=== PATIENT | female | born 1990 | race Caucasian/White ===

== ENCOUNTER 2017-11-02 08:29 | Observation (INO) | payer OTHER ==
[2017-11-02] MEDS ORDERED: Sodium Chloride 0.9% 1,000 ML IV ONE (08:47)
[2017-11-02] MEDS ORDERED: Ondansetron 4 MG/2 ML SDV IVPUSH ONE ×2 (08:48→09:47)
[2017-11-02] MEDS ORDERED: Ketorolac 30 MG/ML SDV IVPUSH ONE (08:48)
--- NOTE | 2017-11-02 08:56 | EDM.PDOC ---
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, has more discomfort that in the past no f/c/d Right Abdomen Pain Score (Numeric/FACES): 4 - Related Data Allergies Allergy/AdvReac Type Severity Reaction Status Date / Time Sulfa (Sulfonamide Allergy Nausea and Verified 11/02/17 08:45 Antibiotics) Vomiting Home Meds: Home Meds Sertraline [Zoloft] 25 mg PO DAILY 11/02/17 [History] ED ROS GENERAL - Review of Systems Review Of Systems: See Below Constitutional: Reports: No Symptoms HEENT: Reports: No Symptoms Respiratory: Reports: No Symptoms Cardiovascular: Reports: No Symptoms Endocrine: Reports: No Symptoms GI/Abdominal: Reports: Abdominal Pain, Diarrhea, Nausea, Vomiting : Reports: No Symptoms Musculoskeletal: Reports: No Symptoms Skin: Reports: No Symptoms Neurological: Reports: No Symptoms Psychiatric: Reports: No Symptoms Hematologic/Lymphatic: Reports: No Symptoms Immunologic: Reports: No Symptoms ED EXAM, GI/ABD - Physical Exam Exam: See Below Exam Limited By: No Limitations General Appearance: Alert, WD/WN, Active Emesis, Other (had dry heaves on arrival, then settled down, PE benign, NAD, non ill) Eyes: Bilateral: Normal Appearance Ears: Normal External Exam, Hearing Grossly Normal Nose: Normal Inspection, Normal Mucosa, No Blood Throat/Mouth: Normal Inspection, Normal Lips, Normal Teeth, Normal Voice, No Airway Compromise Head: Atraumatic, Normocephalic Neck: Normal Inspection, Supple, Non-Tender, Full Range of Motion Respiratory/Chest: No Respiratory Distress, Lungs Clear, Normal Breath Sounds, No Accessory Muscle Use, Chest Non-Tender Cardiovascular: Regular Rate, Rhythm, No Edema, No Gallop, No Murmur, No Rub GI/Abdominal Exam: Normal Bowel Sounds, Soft, Non-Tender, No Distention, No Mass , Other (very soft, no tender at RUQ, no CVAT b/l, NT at [place]) Back Exam: Normal Inspection, Full Range of Motion. No: CVA Tenderness (R), CVA Tenderness (L) Extremities: Normal Inspection, Normal Range of Motion, Non-Tender, No Pedal Edema Neurological: Alert, Oriented, CN II-XII Intact, Normal Cognition, No Motor/ Sensory Deficits Psychiatric: Normal Affect, Normal Mood Skin Exam: Warm, Dry, Intact, Normal Color, No Rash Lymphatic: No Adenopathy Course - Vital Signs Last Recorded V/S: Last Vital Signs Temp 36.7 C 11/02/17 12:10 Pulse 127 H 11/02/17 08:34 Resp 18 11/02/17 08:34 BP 113/62 11/02/17 08:34 Pulse Ox 99 11/02/17 08:34 - Orders/Labs/Meds Orders: Active Orders 24 hr Category Date Time Status Abdomen Pelvis w Cont [CT] Stat Exams 11/02/17 11:13 Ordered CULTURE URINE [RM] Stat Lab 11/02/17 11:08 Ordered HCG QUALITATIVE,URINE [URCHEM] Stat Lab 11/02/17 08:47 Ordered UA W/MICROSCOPIC [URIN] Stat Lab 11/02/17 08:47 Ordered URINALYSIS W/MICROSCOPIC [UA W/MICROSCOPIC] [URIN] Stat Lab 11/02/17 09:54 Ordered Labs: Laboratory Tests 11/02/17 11/02/17 11/02/17 Range/Units 09:00 09:00 09:00 WBC 14.2 H (4.5-12.0) X10-3/uL RBC 5.19 (3.23-5.20) x10(6)uL Hgb 14.4 (11.5-15.5) g/dL Hct 43.7 (30.0-51.3) % MCV 84.2 (80-96) fL MCH 27.8 (27.7-33.6) pg MCHC 33.0 (32.2-35.4) g/dL RDW 11.9 (11.5-15.5) % Plt Count 264 (125-369) X10(3)uL MPV 9.4 (7.4-10.4) fL Add Manual Diff Yes Neutrophils % (Manual) 91 H (46-82) % Lymphocytes % (Manual) 5 L (13-37) % Monocytes % (Manual) 4 (4-12) % Sodium 139 (135-145) mmol/L Potassium 3.7 (3.5-5.3) mmol/L Chloride 104 (100-110) mmol/L Carbon Dioxide 26 (21-32) mmol/L BUN 14 (7-18) mg/dL Creatinine 0.8 (0.55-1.02) mg/dL Est Cr Clr Drug Dosing TNP Estimated GFR (MDRD) > 60 (>60) BUN/Creatinine Ratio 17.5 (9-20) Glucose 125 H (80-116) mg/dL Calcium 8.4 L (8.6-10.2) mg/dL Total Bilirubin 0.5 (0.1-1.3) mg/dL AST 15 (5-25) IU/L ALT 25 (12-36) U/L Alkaline Phosphatase 49 L (56-112) IU/L C-Reactive Protein 2.0 H (0.5-0.9) mg/dL Total Protein 7.1 (6.0-8.0) g/dL Albumin 3.3 L (3.5-5.2) g/dL Globulin 3.8 g/dL Albumin/Globulin Ratio 0.9 Amylase 33 (25-115) U/L Urine Color (YELLOW) Urine Appearance (CLEAR) Urine pH (5.0-6.5) Ur Specific [place] (1.010-1.025) Urine Protein (NEGATIVE) mg/dL Urine Glucose (UA) (NEGATIVE) mg/dL Urine Ketones (NEGATIVE) mg/dL Urine Occult Blood (NEGATIVE) Urine Nitrite (NEGATIVE) Urine Bilirubin (NEGATIVE) Urine Urobilinogen (NEGATIVE) mg/dL Ur Leukocyte Esterase (NEGATIVE) Urine RBC (0) Urine WBC (0) Ur Squamous Epith Cells (NS,R,O) Urine Bacteria (NS) Urine HCG, Qual (NEGATIVE) 11/02/17 11/02/17 11/02/17 Range/Units 09:24 09:24 10:04 WBC (4.5-12.0) X10-3/uL RBC (3.23-5.20) x10(6)uL Hgb (11.5-15.5) g/dL Hct (30.0-51.3) % MCV (80-96) fL MCH (27.7-33.6) pg MCHC (32.2-35.4) g/dL RDW (11.5-15.5) % Plt Count (125-369) X10(3)uL MPV (7.4-10.4) fL Add Manual Diff Neutrophils % (Manual) (46-82) % Lymphocytes % (Manual) (13-37) % Monocytes % (Manual) (4-12) % Sodium (135-145) mmol/L Potassium (3.5-5.3) mmol/L Chloride (100-110) mmol/L Carbon Dioxide (21-32) mmol/L BUN (7-18) mg/dL Creatinine (0.55-1.02) mg/dL Est Cr Clr Drug Dosing Estimated GFR (MDRD) (>60) BUN/Creatinine Ratio (9-20) Glucose (80-116) mg/dL Calcium (8.6-10.2) mg/dL Total Bilirubin (0.1-1.3) mg/dL AST (5-25) IU/L ALT (12-36) U/L Alkaline Phosphatase (56-112) IU/L C-Reactive Protein (0.5-0.9) mg/dL Total Protein (6.0-8.0) g/dL Albumin (3.5-5.2) g/dL Globulin g/dL Albumin/Globulin Ratio Amylase (25-115) U/L Urine Color Yellow Yellow (YELLOW) Urine Appearance Slightly cloudy Slightly cloudy (CLEAR) Urine pH 5.0 7.0 H (5.0-6.5) Ur Specific [place] 1.025 1.010 (1.010-1.025) Urine Protein Negative Negative (NEGATIVE) mg/dL Urine Glucose (UA) Normal Normal (NEGATIVE) mg/dL Urine Ketones Negative Negative (NEGATIVE) mg/dL Urine Occult Blood Moderate H Moderate H (NEGATIVE) Urine Nitrite Negative Negative (NEGATIVE) Urine Bilirubin Small H Negative (NEGATIVE) Urine Urobilinogen Normal Normal (NEGATIVE) mg/dL Ur Leukocyte Esterase Negative Negative (NEGATIVE) Urine RBC 5-10 0-5 (0) Urine WBC 0-5 0-5 (0) Ur Squamous Epith Cells Moderate H Few H (NS,R,O) Urine Bacteria Many H Moderate H (NS) Urine HCG, Qual Negative (NEGATIVE) Meds: Medications Discontinued Medications Generic Name Dose Route Start Last Admin Trade Name Talia PRN Reason Stop Dose Admin Diphenhydramine HCl 25 mg 11/02/17 10:46 11/02/17 10:50 Benadryl IVPUSH 11/02/17 10:47 25 mg ONETIME ONE Administration Sodium Chloride 1,000 mls @ 999 mls/hr 11/02/17 08:47 11/02/17 08:58 Normal Saline IV 11/02/17 09:47 999 mls/hr .BOLUS ONE Administration Sodium Chloride 500 mls @ 999 mls/hr 11/02/17 09:51 11/02/17 10:13 Normal Saline IV 11/02/17 10:21 999 mls/hr .BOLUS ONE Administration Ceftriaxone Sodium 1,000 mg/ 50 mls @ 100 mls/hr 11/02/17 11:22 11/02/17 12: 06 Sodium Chloride IV 11/02/17 11:51 100 mls/hr ONETIME ONE Administration Sodium Chloride Confirm 11/02/17 11:31 Normal Saline Administered 11/02/17 11:32 Dose 50 mls @ as directed .ROUTE .STK-MED ONE Sodium Chloride Confirm 11/02/17 11:32 Normal Saline Administered 11/02/17 11:33 Dose 50 mls @ as directed .ROUTE .STK-MED ONE Sodium Chloride Confirm 11/02/17 11:34 Normal Saline Administered 11/02/17 11:35 Dose 50 mls @ as directed .ROUTE .STK-MED ONE Iopamidol 100 ml 11/02/17 11:25 11/02/17 11:31 Isovue-370 (76%) IV 11/02/17 11:26 100 ml . DIRECTED ONE Administration Ketorolac Tromethamine 30 mg 11/02/17 08:48 11/02/17 08:59 Toradol IVPUSH 11/02/17 08:49 30 mg ONETIME ONE Administration Metoclopramide HCl 10 mg 11/02/17 10:45 11/02/17 10:51 Reglan IVPUSH 11/02/17 10:46 10 mg ONETIME ONE Administration Ondansetron HCl 4 mg 11/02/17 08:48 11/02/17 08:59 Zofran IVPUSH 11/02/17 08:49 4 mg ONETIME ONE Administration Ondansetron HCl 4 mg 11/02/17 09:47 11/02/17 09:54 Zofran IVPUSH 11/02/17 09:48 4 mg ONETIME ONE Administration Promethazine HCl 50 mg 11/02/17 12:37 Phenergan IM 11/02/17 12:38 ONETIME ONE - Re-Assessments/Exams Free Text/Narrative Re-Assessment/Exam: 11/02/17 12:02 repeat u/a with less contaminants, still with moderate bacteria suggesting pyelo altho scant WBC, CRP 2.0 suggests infectious origin pt has h/o kidney stones since 2010, however none seen on CT and scant RBC in urine pt did require 3 doses of anti-emetics (Zofran x 2, Reglan x 1), Benadryl 25 mg IV only made her a little sleepy pt did develop mild tenderness along the R flank, none above inguinal ligament CT of abd/pelvis obtained, no appendicitis, did have multiple small mesenteric lymph nodes, c/w mesenteric lymphadenitis as well as pyelo Free Text/Narrative Re-Assessment/Exam: 11/02/17 12:41 still with N/V, will admit for continued hydration, anti-emetics and antbxs, pt and her mother agree. D/w Dr Rowell who accepted pt in admission. Departure - Departure Time of Disposition: 12:42 Disposition: Refer to Observation Condition: Good Clinical Impression: Pyelonephritis - Discharge Information Referrals: Jayla Julio PA [Primary Care Provider] - - My Orders Last 24 Hours: My Active Orders 11/02/17 08:47 HCG QUALITATIVE,URINE [URCHEM] Stat UA W/MICROSCOPIC [URIN] Stat 11/02/17 09:54 URINALYSIS W/MICROSCOPIC [UA W/MICROSCOPIC] [URIN] Stat 11/02/17 11:08 CULTURE URINE [RM] Stat 11/02/17 11:13 Abdomen Pelvis w Cont [CT] Stat - Assessment/Plan Last 24 Hours: My Active Orders 11/02/17 08:47 HCG QUALITATIVE,URINE [URCHEM] Stat UA W/MICROSCOPIC [URIN] Stat 11/02/17 09:54 URINALYSIS W/MICROSCOPIC [UA W/MICROSCOPIC] [URIN] Stat 11/02/17 11:08 CULTURE URINE [RM] Stat 11/02/17 11:13 Abdomen Pelvis w Cont [CT] Stat
[2017-11-02] MEDS ORDERED: Sodium Chloride 0.9% 500 ML IV ONE (09:51)
[2017-11-02] MEDS ORDERED: Metoclopramide 10 MG/2 ML SDV IVPUSH ONE ×2 (10:45→19:39)
[2017-11-02] MEDS ORDERED: diphenhydrAMINE 50 MG/ML SDV IVPUSH ONE (10:46)
[2017-11-02] MEDS ORDERED: cefTRIAXone 1,000 MG in Sodium Chloride 0.9% 50 ML IV ONE (11:22)
[2017-11-02] MEDS ORDERED: Iopamidol 755 Mg/ML 100 ML Bottle IV ONE (11:25)
[2017-11-02] MEDS ORDERED: Sodium Chloride 0.9% 0 ML ONE ×3 (11:31→11:34)
[2017-11-02] MEDS ORDERED: Promethazine 25 MG/ML SDV IM ONE (12:37)
--- NOTE | 2017-11-02 13:37 | PCM.HP ---
H&P History of Present Illness - General Date of Service: 11/02/17 Admit Problem/Dx: Admission Diagnosis/Problem Admission Diagnosis/Problem Intractable vomiting Source of Information: Patient, Family, Old Records, Provider History Limitations: Reports: No Limitations - History of Present Illness Initial Comments - Free Text/Narative: Patient is a 27-year-old female who was in her usual state of good health until about 3 AM this morning when she awakened with intractable nausea/vomiting/ diarrhea and mild right upper quadrant pain. The patient last evening was already riding and at about 5:30 PM had a separate primary, potatoes, corn. This was served indoors. The fluid appeared to be kept at appropriate temperatures with appropriate catering warmers. She had 3 or 4 beers and then went home and went to bed. She woke up at 3 AM with symptoms as noted above. She had no fevers but did have some chills and sweats. No other sick contacts except for at the wedding the flower girl vomited. They thought this was just due to nerves and eating too much candy. She presented to the emergency department and was treated with IV fluids, Zofran, Reglan, and Phenergan. Initial evaluation showed a white count of 14.2 with a left shift. CRP was 2.0. Other chemistries were unremarkable. Creatinine was 0.8 with a BUN of 14. UA did show some bacteria and 0-5 red blood cells. The patient had a previous history of bladder infection 09/05/2017 which was treated with ciprofloxacin 5 days. Past medical history: Gallbladder removal and normal past which felt nothing like this, bladder infection a month ago which did not feel like this. She had frequency with that and was treated on 09/05/2017 with 5 days of Cipro 250 mg. She also was treated for yeast infection with a one-time dose of Diflucan after the antibiotic therapy and had clindamycin for I believe bacterial vaginosis. Recent history of diagnosis of genital warts about a month ago as well. At that time she had treatment and also negative GC and chlamydia testing. She's had no sexual partner since that time. Social history: This alone here in town. She is single no children and works as a emt/dispatcher. She is a nonsmoker. Drinks alcohol about once a week usually 3-4 beers at a sitting. Had 3 beers last evening. Advised to cut back to no more than 1-2 beers in a sitting. Family history: The patient's mother who is here with her today has breast cancer with metastatic disease to the bone. She was diagnosed 12 years ago and is currently 52. The patient's father has hypothyroidism. The patient has one brother in good health and no sisters. Right Abdomen Pain Score (Numeric/FACES): 4 - Related Data Allergies/Adverse Reactions: Allergies Allergy/AdvReac Type Severity Reaction Status Date / Time Sulfa (Sulfonamide Allergy Nausea and Verified 11/02/17 08:45 Antibiotics) Vomiting Home Medications: Home Meds Sertraline [Zoloft] 25 mg PO DAILY 11/02/17 [History] Past Medical History Gastrointestinal History: Reports: Other (See Below) Other Gastrointestinal History: Pt had gallbladder removed 11 years ago. Psychiatric History: Reports: Anxiety, Depression Social & Family History - Tobacco Use Smoking Status *Q: Never Smoker Second Hand Smoke Exposure: No - Caffeine Use Caffeine Use: Reports: Coffee - Recreational Drug Use Recreational Drug Use: No H&P Review of Systems - Review of Systems: Review Of Systems: ROS reveals no pertinent complaints other than HPI. Exam - Exam Exam: See Below - Vital Signs Vital Signs: Last Vital Signs Temp 36.5 C 11/02/17 13:10 Pulse 110 H 11/02/17 13:10 Resp 14 11/02/17 13:10 BP 104/56 L 11/02/17 13:10 Pulse Ox 100 11/02/17 13:10 Weight: 91.626 kg - Exam General: Alert, Oriented, Cooperative, Mild Distress HEENT: PERRLA, Conjunctiva Clear, Mucosa Moist & [place] Neck: Supple Lungs: Clear to Auscultation, Normal Respiratory Effort Cardiovascular: Regular Rate, Regular Rhythm, Normal S1, Normal S2 GI/Abdominal Exam: Normal Bowel Sounds, Soft, Non-Tender, No Distention Back Exam: Normal Inspection Extremities: Normal Inspection, Normal Range of Motion, Non-Tender, No Pedal Edema Neuro Extensive - Mental Status: Alert, Oriented x3 - Patient Data Lab Results Last 24 hrs: Laboratory Results - last 24 hr 11/02/17 11/02/17 11/02/17 Range/Units 09:00 09:00 09:00 WBC 14.2 H (4.5-12.0) X10-3/uL RBC 5.19 (3.23-5.20) x10(6)uL Hgb 14.4 (11.5-15.5) g/dL Hct 43.7 (30.0-51.3) % MCV 84.2 (80-96) fL MCH 27.8 (27.7-33.6) pg MCHC 33.0 (32.2-35.4) g/dL RDW 11.9 (11.5-15.5) % Plt Count 264 (125-369) X10(3)uL MPV 9.4 (7.4-10.4) fL Add Manual Diff Yes Neutrophils % (Manual) 91 H (46-82) % Lymphocytes % (Manual) 5 L (13-37) % Monocytes % (Manual) 4 (4-12) % Sodium 139 (135-145) mmol/L Potassium 3.7 (3.5-5.3) mmol/L Chloride 104 (100-110) mmol/L Carbon Dioxide 26 (21-32) mmol/L BUN 14 (7-18) mg/dL Creatinine 0.8 (0.55-1.02) mg/dL Est Cr Clr Drug Dosing TNP Estimated GFR (MDRD) > 60 (>60) BUN/Creatinine Ratio 17.5 (9-20) Glucose 125 H (80-116) mg/dL Calcium 8.4 L (8.6-10.2) mg/dL Total Bilirubin 0.5 (0.1-1.3) mg/dL AST 15 (5-25) IU/L ALT 25 (12-36) U/L Alkaline Phosphatase 49 L (56-112) IU/L C-Reactive Protein 2.0 H (0.5-0.9) mg/dL Total Protein 7.1 (6.0-8.0) g/dL Albumin 3.3 L (3.5-5.2) g/dL Globulin 3.8 g/dL Albumin/Globulin Ratio 0.9 Amylase 33 (25-115) U/L Urine Color (YELLOW) Urine Appearance (CLEAR) Urine pH (5.0-6.5) Ur Specific [place] (1.010-1.025) Urine Protein (NEGATIVE) mg/dL Urine Glucose (UA) (NEGATIVE) mg/dL Urine Ketones (NEGATIVE) mg/dL Urine Occult Blood (NEGATIVE) Urine Nitrite (NEGATIVE) Urine Bilirubin (NEGATIVE) Urine Urobilinogen (NEGATIVE) mg/dL Ur Leukocyte Esterase (NEGATIVE) Urine RBC (0) Urine WBC (0) Ur Squamous Epith Cells (NS,R,O) Urine Bacteria (NS) Urine HCG, Qual (NEGATIVE) 11/02/17 11/02/17 11/02/17 Range/Units 09:24 09:24 10:04 WBC (4.5-12.0) X10-3/uL RBC (3.23-5.20) x10(6)uL Hgb (11.5-15.5) g/dL Hct (30.0-51.3) % MCV (80-96) fL MCH (27.7-33.6) pg MCHC (32.2-35.4) g/dL RDW (11.5-15.5) % Plt Count (125-369) X10(3)uL MPV (7.4-10.4) fL Add Manual Diff Neutrophils % (Manual) (46-82) % Lymphocytes % (Manual) (13-37) % Monocytes % (Manual) (4-12) % Sodium (135-145) mmol/L Potassium (3.5-5.3) mmol/L Chloride (100-110) mmol/L Carbon Dioxide (21-32) mmol/L BUN (7-18) mg/dL Creatinine (0.55-1.02) mg/dL Est Cr Clr Drug Dosing Estimated GFR (MDRD) (>60) BUN/Creatinine Ratio (9-20) Glucose (80-116) mg/dL Calcium (8.6-10.2) mg/dL Total Bilirubin (0.1-1.3) mg/dL AST (5-25) IU/L ALT (12-36) U/L Alkaline Phosphatase (56-112) IU/L C-Reactive Protein (0.5-0.9) mg/dL Total Protein (6.0-8.0) g/dL Albumin (3.5-5.2) g/dL Globulin g/dL Albumin/Globulin Ratio Amylase (25-115) U/L Urine Color Yellow Yellow (YELLOW) Urine Appearance Slightly cloudy Slightly cloudy (CLEAR) Urine pH 5.0 7.0 H (5.0-6.5) Ur Specific [place] 1.025 1.010 (1.010-1.025) Urine Protein Negative Negative (NEGATIVE) mg/dL Urine Glucose (UA) Normal Normal (NEGATIVE) mg/dL Urine Ketones Negative Negative (NEGATIVE) mg/dL Urine Occult Blood Moderate H Moderate H (NEGATIVE) Urine Nitrite Negative Negative (NEGATIVE) Urine Bilirubin Small H Negative (NEGATIVE) Urine Urobilinogen Normal Normal (NEGATIVE) mg/dL Ur Leukocyte Esterase Negative Negative (NEGATIVE) Urine RBC 5-10 0-5 (0) Urine WBC 0-5 0-5 (0) Ur Squamous Epith Cells Moderate H Few H (NS,R,O) Urine Bacteria Many H Moderate H (NS) Urine HCG, Qual Negative (NEGATIVE) Result Diagrams: 11/02/17 09:00 11/02/17 09:00 Imaging Impressions Last 24 hrs: CT abdomen and pelvis was negative for any pathology. The patient did have an ovarian cyst which should be followed up as an outpatient. - Problem List (1) Intractable vomiting with nausea SNOMED Code(s): 492937613 ICD Code: R11.2 - NAUSEA WITH VOMITING, UNSPECIFIED Status: Acute Current Visit: Yes Problem Details: Unclear etiology. Could be viral gastroenteritis given the follicle vomiting at the wedding yesterday. Could be food related illness. Antiemetics, IV fluids, continue monitoring. Given recent bladder infection the patient had received a dose of Rocephin in the emergency department. This is good for 24 hours so pending urine culture will not give any further antibiotic therapy at this time. (2) Pyelonephritis SNOMED Code(s): 49308362 ICD Code: N12 - TUBULO-INTERSTITIAL NEPHRITIS, NOT SPCF ACUTE OR CHRONIC Status: Acute Current Visit: Yes Problem Details: Given lack of symptomatology, no fever, no frequency or urgency, I'm going to hold off on antibiotic therapy. Looking at the patient's urinalysis from the clinic, although showed many bacteria and white blood cells, also showed many squamous epithelial cells in addition to leukocyte esterase. Nitrates were negative. Culture showed mixed microflora with 1000 colonies of Streptococcus B agalactiae. (3) Ovarian cyst SNOMED Code(s): 12952869 ICD Code: N83.209 - UNSPECIFIED OVARIAN CYST, UNSPECIFIED SIDE Status: Acute Current Visit: Yes Problem Details: We'll need followed up as an outpatient. Patient and mother informed of this finding and are aware. Patient has previous history of ovarian cysts. (4) DVT prophylaxis SNOMED Code(s): 514854258, 591638627 ICD Code: MNL0157 - Status: Acute Current Visit: Yes Problem Details: SCDs, early ambulation. Problem List Initiated/Reviewed/Updated: Yes Orders Last 24hrs: Active Orders 24 hr Category Date Time Status Patient Status [ADT] Routine ADT 11/02/17 12:55 Active Height and Weight [RC] DAILY Care 11/02/17 12:55 Active Intake and Output [RC] QSHIFT Care 11/02/17 12:55 Active Oxygen Therapy [RC] PRN Care 11/02/17 12:55 Active Up ad Alexa [RC] ASDIRECTED Care 11/02/17 12:55 Active VTE/DVT Education [RC] Per Unit Routine Care 11/02/17 12:55 Active Vital Signs [RC] Q4H Care 11/02/17 12:55 Active Clear Liquid Diet [DIET] Diet 11/02/17 Breakfast Active Abdomen Pelvis w Cont [CT] Stat Exams 11/02/17 11:13 Taken BASIC METABOLIC PANEL,BMP [CHEM] AM Lab 11/03/17 05:11 Ordered CBC WITH AUTO DIFF [HEME] AM Lab 11/03/17 05:11 Ordered CULTURE URINE [RM] Stat Lab 11/02/17 10:04 Received HCG QUALITATIVE,URINE [URCHEM] Stat Lab 11/02/17 09:24 Ordered UA W/MICROSCOPIC [URIN] Stat Lab 11/02/17 09:24 Ordered URINALYSIS W/MICROSCOPIC [UA W/MICROSCOPIC] [URIN] Stat Lab 11/02/17 10:04 Ordered Ondansetron [Zofran ODT] Med 11/02/17 12:55 Active 4 mg PO Q4H PRN Sertraline [Zoloft] Med 11/03/17 09:00 Active 25 mg PO DAILY Sequential Compression Device [OM.PC] Per Unit Routine Oth 11/02/17 12:56 Ordered Resuscitation Status Routine Resus Stat 11/02/17 12:55 Ordered Medication Orders Ondansetron HCl (Zofran Odt) 4 mg PO Q4H PRN PRN Reason: nausea, able to take PO Sertraline HCl (Zoloft) 25 mg PO DAILY BRYANNA Assessment/Plan Comment:: CODE STATUS discussed with the patient and her mother. The patient is a full code.
[2017-11-02] MEDS ORDERED: Sodium Chloride 0.9% 10 ML Syringe FLUSH PRN (15:33)
[2017-11-02] MEDS: Acetaminophen 325 MG Tab PO PRN (17:20)
[2017-11-02] MEDS: Sodium Chloride 0.9% 1,000 ML IV SCH (17:21)
[2017-11-02] MEDS: Ondansetron 4 MG Tab.DIS PO PRN ×2 (18:03→23:20)
[2017-11-03] MEDS: Acetaminophen 325 MG Tab PO PRN ×2 (02:34→09:07)
[2017-11-03] MEDS: Sodium Chloride 0.9% 1,000 ML IV SCH ×2 (03:20→14:43)
[2017-11-03] MEDS ORDERED: Potassium Chloride 10 MEQ in Premix Bag 4 BAG IV ONE (07:49)
[2017-11-03] MEDS: Potassium Chloride 100 ML IV SCH ×4 (08:59→13:02)
[2017-11-03] MEDS: Sertraline 25 MG Tab PO SCH (08:59)
[2017-11-03] MEDS ORDERED: Potassium Chloride 100 ML IV SCH (09:00)
--- NOTE | 2017-11-03 10:06 | PCM.PN ---
- General Info Date of Service: 11/03/17 Subjective Update: 27-year-old female currently on hospital day #2 for nausea/vomiting/diarrhea. No further vomiting this morning but still feels nauseated. Tolerating sips of clear liquids. Has had 3 loose watery stools this morning. No chest pain or shortness of breath. No abdominal pain. - Patient Data Vitals - Most Recent: Last Vital Signs Temp 36.9 C 11/03/17 07:15 Pulse 102 H 11/03/17 07:15 Resp 18 11/03/17 07:15 BP 113/72 11/03/17 07:15 Pulse Ox 97 11/03/17 07:15 Weight - Most Recent: 92.618 kg I&O - Last 24 Hours: Intake & Output 11/02/17 11/03/17 11/03/17 22:59 06:59 14:59 Intake Total 977 1007 100 Output Total 325 75 300 Balance 652 932 -200 Lab Results Last 24 Hours: Laboratory Results - last 24 hr 11/02/17 11/02/17 11/03/17 Range/Units 09:00 10:04 06:15 WBC 6.2 (4.5-12.0) X10-3/uL RBC 4.22 (3.23-5.20) x10(6)uL Hgb 11.8 (11.5-15.5) g/dL Hct 35.1 (30.0-51.3) % MCV 83.2 (80-96) fL MCH 28.0 (27.7-33.6) pg MCHC 33.6 (32.2-35.4) g/dL RDW 11.6 (11.5-15.5) % Plt Count 178 (125-369) X10(3)uL MPV 9.3 (7.4-10.4) fL Neut % (Auto) 80.1 (46-82) % Lymph % (Auto) 13.2 (13-37) % [place] % (Auto) 6.1 (4-12) % Eos % (Auto) 0 L (1.0-5.0) % Baso % (Auto) 0 (0-2) % Neut # (Auto) 5.0 (1.6-8.3) # Lymph # (Auto) 0.8 (0.6-5.0) # Kemper # (Auto) 0.4 (0.0-1.3) # Eos # (Auto) 0.0 (0.0-0.8) # Baso # (Auto) 0.0 (0.0-0.2) # Sodium (135-145) mmol/L Potassium (3.5-5.3) mmol/L Chloride (100-110) mmol/L Carbon Dioxide (21-32) mmol/L BUN (7-18) mg/dL Creatinine (0.55-1.02) mg/dL Est Cr Clr Drug Dosing mL/min Estimated GFR (MDRD) (>60) BUN/Creatinine Ratio (9-20) Glucose (80-116) mg/dL Calcium (8.6-10.2) mg/dL C-Reactive Protein 2.0 H (0.5-0.9) mg/dL Urine Color Yellow (YELLOW) Urine Appearance Slightly cloudy (CLEAR) Urine pH 7.0 H (5.0-6.5) Ur Specific [place] 1.010 (1.010-1.025) Urine Protein Negative (NEGATIVE) mg/dL Urine Glucose (UA) Normal (NEGATIVE) mg/dL Urine Ketones Negative (NEGATIVE) mg/dL Urine Occult Blood Moderate H (NEGATIVE) Urine Nitrite Negative (NEGATIVE) Urine Bilirubin Negative (NEGATIVE) Urine Urobilinogen Normal (NEGATIVE) mg/dL Ur Leukocyte Esterase Negative (NEGATIVE) Urine RBC 0-5 (0) Urine WBC 0-5 (0) Ur Squamous Epith Cells Few H (NS,R,O) Urine Bacteria Moderate H (NS) 11/03/17 Range/Units 06:15 WBC (4.5-12.0) X10-3/uL RBC (3.23-5.20) x10(6)uL Hgb (11.5-15.5) g/dL Hct (30.0-51.3) % MCV (80-96) fL MCH (27.7-33.6) pg MCHC (32.2-35.4) g/dL RDW (11.5-15.5) % Plt Count (125-369) X10(3)uL MPV (7.4-10.4) fL Neut % (Auto) (46-82) % Lymph % (Auto) (13-37) % [place] % (Auto) (4-12) % Eos % (Auto) (1.0-5.0) % Baso % (Auto) (0-2) % Neut # (Auto) (1.6-8.3) # Lymph # (Auto) (0.6-5.0) # Kem[place] # (Auto) (0.0-1.3) # Eos # (Auto) (0.0-0.8) # Baso # (Auto) (0.0-0.2) # Sodium 138 (135-145) mmol/L Potassium 2.7 L* D (3.5-5.3) mmol/L Chloride 106 (100-110) mmol/L Carbon Dioxide 24 (21-32) mmol/L BUN 10 (7-18) mg/dL Creatinine 0.7 (0.55-1.02) mg/dL Est Cr Clr Drug Dosing 96.32 mL/min Estimated GFR (MDRD) > 60 (>60) BUN/Creatinine Ratio 14.3 (9-20) Glucose 90 (80-116) mg/dL Calcium 7.3 L (8.6-10.2) mg/dL C-Reactive Protein (0.5-0.9) mg/dL Urine Color (YELLOW) Urine Appearance (CLEAR) Urine pH (5.0-6.5) Ur Specific [place] (1.010-1.025) Urine Protein (NEGATIVE) mg/dL Urine Glucose (UA) (NEGATIVE) mg/dL Urine Ketones (NEGATIVE) mg/dL Urine Occult Blood (NEGATIVE) Urine Nitrite (NEGATIVE) Urine Bilirubin (NEGATIVE) Urine Urobilinogen (NEGATIVE) mg/dL Ur Leukocyte Esterase (NEGATIVE) Urine RBC (0) Urine WBC (0) Ur Squamous Epith Cells (NS,R,O) Urine Bacteria (NS) Raulito Results Last 24 Hours: Microbiology 11/02/17 10:04 Urine Culture - Preliminary Urine, Clean Catch MIXED POSITIVE DAVID DAY 1 Med Orders - Current: Current Medications Acetaminophen (Tylenol) 650 mg PO Q4H PRN PRN Reason: Pain Last Admin: 11/03/17 09:07 Dose: 650 mg Sodium Chloride (Normal Saline) 1,000 mls @ 100 mls/hr IV ASDIRECTED BRYANNA Last Admin: 11/03/17 03:20 Dose: 100 mls/hr Potassium Chloride (Kcl 10 Meq In Water 100 Ml) 100 mls @ 100 mls/hr IV Q1H BRYANNA Stop: 11/03/17 12:59 Last Admin: 11/03/17 08:59 Dose: 100 mls/hr Ondansetron HCl (Zofran Odt) 4 mg PO Q4H PRN PRN Reason: nausea, able to take PO Last Admin: 11/02/17 23:20 Dose: 4 mg Sertraline HCl (Zoloft) 25 mg PO DAILY BRYANNA Last Admin: 11/03/17 08:59 Dose: 25 mg Sodium Chloride (Saline Flush) 10 ml FLUSH ASDIRECTED PRN PRN Reason: as need for flush Discontinued Medications Diphenhydramine HCl (Benadryl) 25 mg IVPUSH ONETIME ONE Stop: 11/02/17 10:47 Last Admin: 11/02/17 10:50 Dose: 25 mg Sodium Chloride (Normal Saline) 1,000 mls @ 999 mls/hr IV .BOLUS ONE Stop: 11/02/17 09:47 Last Admin: 11/02/17 08:58 Dose: 999 mls/hr Sodium Chloride (Normal Saline) 500 mls @ 999 mls/hr IV .BOLUS ONE Stop: 11/02/17 10:21 Last Admin: 11/02/17 10:13 Dose: 999 mls/hr Ceftriaxone Sodium 1,000 mg/ (Sodium Chloride) 50 mls @ 100 mls/hr IV ONETIME ONE Stop: 11/02/17 11:51 Last Admin: 11/02/17 12:06 Dose: 100 mls/hr Sodium Chloride (Normal Saline) Confirm Administered Dose 50 mls @ as directed .ROUTE .STK-MED ONE Stop: 11/02/17 11:32 Last Admin: 11/02/17 14:49 Dose: Not Given Sodium Chloride (Normal Saline) Confirm Administered Dose 50 mls @ as directed .ROUTE .STK-MED ONE Stop: 11/02/17 11:33 Last Admin: 11/02/17 12:45 Dose: Not Given Sodium Chloride (Normal Saline) Confirm Administered Dose 50 mls @ as directed .ROUTE .STK-MED ONE Stop: 11/02/17 11:35 Last Admin: 11/02/17 12:45 Dose: Not Given Iopamidol (Isovue-370 (76%)) 100 ml IV . DIRECTED ONE Stop: 11/02/17 11:26 Last Admin: 11/02/17 11:31 Dose: 100 ml Ketorolac Tromethamine (Toradol) 30 mg IVPUSH ONETIME ONE Stop: 11/02/17 08:49 Last Admin: 11/02/17 08:59 Dose: 30 mg Metoclopramide HCl (Reglan) 10 mg IVPUSH ONETIME ONE Stop: 11/02/17 10:46 Last Admin: 11/02/17 10:51 Dose: 10 mg Metoclopramide HCl (Reglan) 10 mg IVPUSH ONETIME ONE Stop: 11/02/17 19:40 Last Admin: 11/02/17 19:55 Dose: 10 mg Ondansetron HCl (Zofran) 4 mg IVPUSH ONETIME ONE Stop: 11/02/17 08:49 Last Admin: 11/02/17 08:59 Dose: 4 mg Ondansetron HCl (Zofran) 4 mg IVPUSH ONETIME ONE Stop: 11/02/17 09:48 Last Admin: 11/02/17 09:54 Dose: 4 mg Promethazine HCl (Phenergan) 50 mg IM ONETIME ONE Stop: 11/02/17 12:38 Last Admin: 11/02/17 14:20 Dose: 50 mg - Exam General: Alert, Oriented, Cooperative, No Acute Distress HEENT: Pupils Equal, Pupils Reactive Neck: Supple Lungs: Clear to Auscultation, Normal Respiratory Effort Cardiovascular: Regular Rate, Regular Rhythm, No Murmurs GI/Abdominal Exam: Normal Bowel Sounds, Soft, Non-Tender, No Distention Extremities: Normal Inspection, Normal Range of Motion, No Pedal Edema Psy/Mental Status: Alert, Normal Affect, Normal Mood - Problem List & Annotations (1) Intractable vomiting with nausea SNOMED Code(s): 969878501 Code(s): R11.2 - NAUSEA WITH VOMITING, UNSPECIFIED Status: Acute Current Visit: Yes Annotation/Comment:: Improving. Continue IV antiemetics. Continue IV fluids until patient is taking by mouth intake well. We'll check stool cultures for infection but at this point I suspect this is likely viral. (2) Pyelonephritis SNOMED Code(s): 44710982 Code(s): N12 - TUBULO-INTERSTITIAL NEPHRITIS, NOT SPCF ACUTE OR CHRONIC Status: Acute Current Visit: Yes Annotation/Comment:: No symptoms and urine culture is currently showing mixed david. Will not treat with antibiotic therapy. (3) Ovarian cyst SNOMED Code(s): 55494583 Code(s): N83.209 - UNSPECIFIED OVARIAN CYST, UNSPECIFIED SIDE Status: Acute Current Visit: Yes Annotation/Comment:: Will need followed up as an outpatient. Patient and mother informed of this finding and are aware. Patient has previous history of ovarian cysts. (4) DVT prophylaxis SNOMED Code(s): 555413147, 764183982 Code(s): WDZ7715 - Status: Acute Current Visit: Yes Annotation/Comment :: SCDs, early ambulation. (5) Hypokalemia due to loss of potassium SNOMED Code(s): 74291256 Code(s): E87.6 - HYPOKALEMIA Status: Acute Current Visit: Yes Annotation/Comment:: 2.7 this am. Will replace IV today. Recheck at 1500. - Problem List Review Problem List Initiated/Reviewed/Updated: Yes - My Orders Last 24 Hours: My Active Orders 11/02/17 12:55 Patient Status [ADT] Routine Height and Weight [RC] 06 Intake and Output [RC] 06,14,22 Oxygen Therapy [RC] PRN Up ad Alexa [RC] 09,13,17,21 Vital Signs [RC] 08,12,16,20,00,04 Ondansetron [Zofran ODT] 4 mg PO Q4H PRN Resuscitation Status Routine 11/02/17 12:56 Sequential Compression Device [OM.PC] Per Unit Routine 11/02/17 15:33 Sodium Chloride 0.9% [Saline Flush] 10 ml FLUSH ASDIRECTED PRN 11/02/17 15:45 Sodium Chloride 0.9% [Normal Saline] 1,000 ml IV ASDIRECTED 11/02/17 16:59 Acetaminophen [Tylenol] 650 mg PO Q4H PRN 11/03/17 08:29 STOOL CULTURE Stat 11/03/17 08:30 C DIFFICILE, CYTOTOXIN B Stat LACTOFERRIN, FECAL, QUANT Stat ROTAVIRUS AG, EIA Stat 11/03/17 09:00 Potassium Chloride [KCl 10 MEQ in Water 100 ML] 100 ml IV Q1H Sertraline [Zoloft] 25 mg PO DAILY 11/03/17 15:00 POTASSIUM,K [CHEM] Routine - Plan Plan:: CODE STATUS discussed with the patient and her mother. The patient is a full code.
[2017-11-04] MEDS ORDERED: Sodium Chloride 0.9% 10 ML Syringe FLUSH PRN (08:17)
[2017-11-04] MEDS: Sertraline 25 MG Tab PO SCH (08:46)
--- NOTE | 2017-11-04 09:28 | PCM.DCSUM1 ---
Discharge Summary - Hospital Course Free Text/Narrative:: Date of admission: 11/02/2017 Date of discharge: 11/04/2017 Admission diagnosis: Nausea/vomiting/diarrhea, intractable. Unclear etiology. Discharge diagnosis: Likely viral gastroenteritis, now with symptoms resolved. History of present illness: Patient is a 27-year-old female who presented on the day of admission with about 8 hours of intractable nausea, vomiting, diarrhea. Symptoms were unable to be controlled in the emergency department so the patient was admitted for IV fluids and monitoring. Hospital Course: Essentially the patient did very well throughout her hospital stay with gradual improvement. Laboratory testing was done to rule out for poisoning and stool culture and rotavirus are still pending. C. difficile, urine culture, were negative. See below for Hospital course by problem. - Discharge Data Discharge Date: 11/04/17 Discharge Disposition: Home, Self-Care 01 Condition: Fair - Discharge Diagnosis/Problem(s) (1) Intractable vomiting with nausea SNOMED Code(s): 624198683 ICD Code: R11.2 - NAUSEA WITH VOMITING, UNSPECIFIED Status: Acute Current Visit: Yes Problem Details: Taking clear liquids well. Ready for discharge today. No further diarrhea since last night. (2) Pyelonephritis SNOMED Code(s): 11314674 ICD Code: N12 - TUBULO-INTERSTITIAL NEPHRITIS, NOT SPCF ACUTE OR CHRONIC Status: Acute Current Visit: Yes Problem Details: No symptoms and urine culture is currently showing mixed david. Will not treat with antibiotic therapy. (3) Ovarian cyst SNOMED Code(s): 58279116 ICD Code: N83.209 - UNSPECIFIED OVARIAN CYST, UNSPECIFIED SIDE Status: Acute Current Visit: Yes Problem Details: Will need followed up as an outpatient. Patient and mother informed of this finding and are aware. Patient has previous history of ovarian cysts. (4) DVT prophylaxis SNOMED Code(s): 775424309, 008624945 ICD Code: OFD0779 - Status: Acute Current Visit: Yes Problem Details: SCDs, early ambulation. (5) Hypokalemia due to loss of potassium SNOMED Code(s): 13265929 ICD Code: E87.6 - HYPOKALEMIA Status: Acute Current Visit: Yes Problem Details: Potassium 3.3 last evening on recheck. - Patient Instructions Diet: Usual Diet as Tolerated Activity: Rest and Relax Today (May return to work tomorrow if feeling ready. ) Driving: May Drive Today Notify Provider of: Nausea and/or Vomiting Other/Special Instructions: You were admitted to the hospital with nausea, vomiting, diarrhea. We think the cause was an infection, likely viral. Labs are still pending for stool cultures and rotavirus. You can return to a normal diet as tolerated. You can return to your control pills but use a backup form of control for the next month. Remember that control pills do not protect against sexually-transmitted infection. You can return to her normal activities as tolerated. You can return to work tomorrow if feeling back to your normal activities otherwise wait until the . Follow up with your primary care provider sometime in the next week for test results. - Discharge Plan Home Medications: Home Meds Sertraline [Zoloft] 25 mg PO DAILY 11/02/17 [History] Patient Handouts: Pyelonephritis, Adult, [id number], Hypokalemia, Nausea and Vomiting, Adult, [id number], Ovarian Cyst, [id number], Venous Thromboembolism Prevention Forms: ED Department Discharge Referrals: Jayla Julio PA [Primary Care Provider] - - General Info Date of Service: 11/04/17 Subjective Update: On the day of discharge, patient was feeling well. Taking clear liquids without difficulty. No further nausea or vomiting. No diarrhea since the night prior. No chest pain or no shortness of breath. - Patient Data Vitals - Most Recent: Last Vital Signs Temp 36.6 C 11/04/17 05:30 Pulse 83 11/04/17 05:30 Resp 16 11/04/17 05:30 BP 99/56 L 11/04/17 05:30 Pulse Ox 97 11/04/17 05:30 Weight - Most Recent: 92.578 kg I&O - Last 24 hours: Intake & Output 11/03/17 11/04/17 11/04/17 22:59 06:59 14:59 Intake Total 775 442 Output Total 500 Balance 275 442 Lab Results - Last 24 hrs: Laboratory Results - last 24 hr 11/03/17 Range/Units 15:00 Potassium 3.3 L (3.5-5.3) mmol/L KEVIN Results - Last 24 hrs: Microbiology 11/02/17 10:04 Urine Culture - Final Urine, Clean Catch MIXED POSITIVE DAVID DAY 2 11/03/17 09:00 Clostridium difficile Toxin A & B - Final Stool / Feces NEGATIVE CDIFF TOXIN Med Orders - Current: Current Medications Acetaminophen (Tylenol) 650 mg PO Q4H PRN PRN Reason: Pain Last Admin: 11/03/17 09:07 Dose: 650 mg Ondansetron HCl (Zofran Odt) 4 mg PO Q4H PRN PRN Reason: nausea, able to take PO Last Admin: 11/02/17 23:20 Dose: 4 mg Sertraline HCl (Zoloft) 25 mg PO DAILY BRYANNA Last Admin: 11/04/17 08:46 Dose: 25 mg Sodium Chloride (Saline Flush) 10 ml FLUSH ASDIRECTED PRN PRN Reason: as need for flush Sodium Chloride (Saline Flush) 10 ml FLUSH ASDIRECTED PRN PRN Reason: Keep Vein Open Discontinued Medications Diphenhydramine HCl (Benadryl) 25 mg IVPUSH ONETIME ONE Stop: 11/02/17 10:47 Last Admin: 11/02/17 10:50 Dose: 25 mg Sodium Chloride (Normal Saline) 1,000 mls @ 999 mls/hr IV .BOLUS ONE Stop: 11/02/17 09:47 Last Admin: 11/02/17 08:58 Dose: 999 mls/hr Sodium Chloride (Normal Saline) 500 mls @ 999 mls/hr IV .BOLUS ONE Stop: 11/02/17 10:21 Last Admin: 11/02/17 10:13 Dose: 999 mls/hr Ceftriaxone Sodium 1,000 mg/ (Sodium Chloride) 50 mls @ 100 mls/hr IV ONETIME ONE Stop: 11/02/17 11:51 Last Admin: 11/02/17 12:06 Dose: 100 mls/hr Sodium Chloride (Normal Saline) Confirm Administered Dose 50 mls @ as directed .ROUTE .STK-MED ONE Stop: 11/02/17 11:32 Last Admin: 11/02/17 14:49 Dose: Not Given Sodium Chloride (Normal Saline) Confirm Administered Dose 50 mls @ as directed .ROUTE .STK-MED ONE Stop: 11/02/17 11:33 Last Admin: 11/02/17 12:45 Dose: Not Given Sodium Chloride (Normal Saline) Confirm Administered Dose 50 mls @ as directed .ROUTE .STK-MED ONE Stop: 11/02/17 11:35 Last Admin: 11/02/17 12:45 Dose: Not Given Sodium Chloride (Normal Saline) 1,000 mls @ 100 mls/hr IV ASDIRECTED [facility] Last Admin: 11/03/17 14:43 Dose: 100 mls/hr Potassium Chloride (Kcl 10 Meq In Water 100 Ml) 100 mls @ 100 mls/hr IV Q1H [facility] Stop: 11/03/17 12:59 Last Admin: 11/03/17 13:02 Dose: 100 mls/hr Iopamidol (Isovue-370 (76%)) 100 ml IV . DIRECTED ONE Stop: 11/02/17 11:26 Last Admin: 11/02/17 11:31 Dose: 100 ml Ketorolac Tromethamine (Toradol) 30 mg IVPUSH ONETIME ONE Stop: 11/02/17 08:49 Last Admin: 11/02/17 08:59 Dose: 30 mg Metoclopramide HCl (Reglan) 10 mg IVPUSH ONETIME ONE Stop: 11/02/17 10:46 Last Admin: 11/02/17 10:51 Dose: 10 mg Metoclopramide HCl (Reglan) 10 mg IVPUSH ONETIME ONE Stop: 11/02/17 19:40 Last Admin: 11/02/17 19:55 Dose: 10 mg Ondansetron HCl (Zofran) 4 mg IVPUSH ONETIME ONE Stop: 11/02/17 08:49 Last Admin: 11/02/17 08:59 Dose: 4 mg Ondansetron HCl (Zofran) 4 mg IVPUSH ONETIME ONE Stop: 11/02/17 09:48 Last Admin: 11/02/17 09:54 Dose: 4 mg Promethazine HCl (Phenergan) 50 mg IM ONETIME ONE Stop: 11/02/17 12:38 Last Admin: 11/02/17 14:20 Dose: 50 mg - Exam General: Reports: Alert, Oriented, Cooperative, No Acute Distress HEENT: Reports: Pupils Equal, Pupils Reactive Neck: Reports: Supple Lungs: Reports: Clear to Auscultation, Normal Respiratory Effort Cardiovascular: Reports: Regular Rate, Regular Rhythm, No Murmurs GI/Abdominal Exam: Normal Bowel Sounds, Soft, Non-Tender, No Distention Extremities: No Pedal Edema
== END 2017-11-04 09:50 | disposition home or self-care (01) ==
LOC: FB.ED 08:29 → FB.MS 12:39 → UNDOADMOB 12:39
PROVIDERS: ADMIT Family Medicine; ATTEND Family Medicine
DX: R11.2 Nausea with vomiting, unspecified (principal); R19.7 Diarrhea, unspecified; N12 Tubulo-interstitial nephritis, not specified as acute or chronic; N83.209 Unspecified ovarian cyst, unspecified side; E87.6 Hypokalemia; F41.9 Anxiety disorder, unspecified; F32.9 Major depressive disorder, single episode, unspecified; Z79.899 Other long term (current) drug therapy; Z88.2 Allergy status to sulfonamides
CPT/HCPCS: 36415; 74177; 80048; 80053; 81001; 81025; 82150; 84132; 85025; 86140; 87086; 87324; 87425; 96361; 96365; 96375; 96376; 99284; A9270; G0378; J0696; J1200; J1885; J2405; J2550; J2765; J3480; J7040; J7050; Q9967; 83630; 96374

== ENCOUNTER 2018-08-21 19:10 | Emergency (ER) | payer OTHER ==
[2018-08-21] MEDS ORDERED: Ondansetron 4 MG/2 ML SDV IVPUSH ONE ×3 (19:39→23:12)
[2018-08-21] MEDS ORDERED: Lactated Ringers 1,000 ML IV ONE (19:39)
[2018-08-21] MEDS: Sodium Chloride 0.9% 10 ML Syringe FLUSH PRN ×2 (20:20→20:35)
[2018-08-21] MEDS ORDERED: Sodium Chloride 0.9% 1,000 ML IV ONE (20:22)
[2018-08-21] MEDS ORDERED: Ibuprofen 600 MG Tab PO ONE (20:59)
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
[2018-08-21] MEDS ORDERED: Ketorolac 30 MG/ML SDV IVPUSH ONE (23:12)
[2018-08-22] MEDS: Sodium Chloride 0.9% 10 ML Syringe FLUSH PRN
== END 2018-08-22 00:15 | disposition home or self-care (01) ==
LOC: FB.ED 19:10
DX: E86.0 Dehydration (principal); M54.6 Pain in thoracic spine; R10.9 Unspecified abdominal pain; F32.9 Major depressive disorder, single episode, unspecified; F41.9 Anxiety disorder, unspecified; Z88.2 Allergy status to sulfonamides; Z79.899 Other long term (current) drug therapy
CPT/HCPCS: 36415; 71046; 74176; 80053; 80305; 81001; 81025; 83605; 85025; 85379; 87804; 96361; 96374; 96375; 99284; A9270; J1885; J2405; J7030; J7120